=== PATIENT | male | born 1970 | race Caucasian/White ===

== ENCOUNTER 2023-09-22 10:15 | Outpatient (CLI) | payer OTHER | END 2023-09-22 10:30 | disposition home or self-care (01) | LOC: LAB.N 10:15 | PROVIDERS: ATTEND Physician Assistant Medical | DX: L02.31 Cutaneous abscess of buttock (principal) | CPT/HCPCS: 87070; 87077; 87181; 87205 ==

== ENCOUNTER 2023-10-15 22:55 | Outpatient (CLI) | payer OTHER | END 2023-10-15 22:56 | disposition critical access hospital (66) | LOC: EMS 22:55 | DX: S41.112A Laceration without foreign body of left upper arm, initial encounter (principal); S51.812A Laceration without foreign body of left forearm, initial encounter; W01.110A Fall on same level from slipping, tripping and stumbling with subsequent striking against sharp glass, initial encounter; Y93.01 Activity, walking, marching and hiking; Y92.039 Unspecified place in apartment as the place of occurrence of the external cause; F10.129 Alcohol abuse with intoxication, unspecified | CPT/HCPCS: A0425; A0427 ==

== ENCOUNTER 2023-10-15 23:08 | Emergency (ER) | payer OTHER ==
--- NOTE | 2023-10-15 23:07 | ED Physician Documentation ---
PD HPI UPPER EXT INJURY - Stated complaint Stated Complaint: L ARM INJ/FALL/ETOH - History obtained from History obtained from: Patient, EMS - Additonal information Additional information: Livia MIXON. HPI from EMS with lesser contribution from patient. Patient was walking home from a bar when he stumbled and fell, left upper extremity went through a ground-level apartment window, shattering the glass and causing multiple lacerations to the LUE. This was approximately 22:40 tonight. Denies other injury aside from the LUE lacerations. EMS arrived and describe significant amount of blood on scene as well as pulsatile bleeding from the lacerations; EMS thus placed LUE tourniquet AT 22:48 which has been in place since then. Patient is being assessed as FULL TRAUMA. PD PAST MEDICAL HISTORY - Past Medical History Past Medical History: No - Allergies Allergies/Adverse Reactions: Allergies Allergy/AdvReac Type Severity Reaction Status Date / Time codeine Allergy Rash Verified 10/15/23 23:17 PD ED PE NORMAL - Vitals Vital signs reviewed: Yes - General General: Well developed/nourished, Other (pale, diaphoretic. cervical collar in place. answers questions appropriately but occasionally perseverates (repeatedly calling out "Barbara", insists this person is in the room)) - HEENT HEENT: Atraumatic, PERRL, EOMI - Cardiac Cardiac: RRR, No murmur - Respiratory Respiratory: No respiratory distress, Clear bilaterally - Abdomen Abdomen: Soft, Non tender - Neuro Eye Opening: Spontaneous Motor: Obeys Commands Verbal: Oriented GCS Score: 15 PD ED PE EXPANDED - Extremities Extremities: Other (tourniquet in place proximal left upper arm) JOSH UE/Hands Visual: 1 - laceration (3 cm) 2 - laceration (6 cm) 3 - laceration (14 cm laceration) 4 - laceration (6 cm length. two large glass fragments (18cm and 15cm) removed by me) Results - Vitals Vitals: Oxygen O2 Source Nasal cannula Oxygen Flow Rate 6 - Labs Labs: Laboratory Tests 10/15/23 10/15/23 10/15/23 23:31 23:31 23:31 WBC 11.2 H RBC 3.38 L Hgb 10.8 L Hct 32.7 L MCV 96.7 H MCH 32.0 H MCHC 33.0 RDW 11.9 L Plt Count 282 MPV 10.0 Neut # (Auto) Not Reportable Lymph # (Auto) Not Reportable [place] # (Auto) Not Reportable Eos # (Auto) Not Reportable Baso # (Auto) Not Reportable Absolute Nucleated RBC Not Reportable Total Counted 100 Band Neuts % (Manual) 0 Abnorm Lymph % (Manual) 0 Nucleated RBC % Not Reportable Neutrophils # (Manual) 5.3 Lymphocytes # (Manual) 5.5 H Monocytes # (Manual) 0.4 Eosinophils # (Manual) 0.0 Basophils # (Manual) 0.0 Differential Comment MANUAL DIFFERENTIAL Platelet Estimate NORMAL (130-450,000) RBC Morph Micro Appear NORMAL APPEARANCE PT 12.8 H INR 1.2 APTT 20.1 L Sodium 139 Potassium 2.6 L Chloride 111 Carbon Dioxide 15 L Anion Gap 13.0 BUN 12 Creatinine 0.7 Estimated GFR (MDRD) 118 Glucose 349 H Calcium 6.0 L* Total Bilirubin 0.2 AST 26 ALT 24 Alkaline Phosphatase 77 Total Protein 4.1 L Albumin 2.1 L Globulin 2.0 L Albumin/Globulin Ratio 1.1 Lipase 32 Ethyl Alcohol 266.1 Blood Type Blood Type Recheck Antibody Screen Crossmatch IS Only 10/15/23 10/15/23 23:31 23:37 WBC RBC Hgb Hct MCV MCH MCHC RDW Plt Count MPV Neut # (Auto) Lymph # (Auto) [place] # (Auto) Eos # (Auto) Baso # (Auto) Absolute Nucleated RBC Total Counted Band Neuts % (Manual) Abnorm Lymph % (Manual) Nucleated RBC % Neutrophils # (Manual) Lymphocytes # (Manual) Monocytes # (Manual) Eosinophils # (Manual) Basophils # (Manual) Differential Comment Platelet Estimate RBC Morph Micro Appear PT INR APTT Sodium Potassium Chloride Carbon Dioxide Anion Gap BUN Creatinine Estimated GFR (MDRD) Glucose Calcium Total Bilirubin AST ALT Alkaline Phosphatase Total Protein Albumin Globulin Albumin/Globulin Ratio Lipase Ethyl Alcohol Blood Type B POSITIVE Blood Type Recheck B POSITIVE Antibody Screen NEGATIVE Crossmatch IS Only See Detail PD Medical Decision Making - ED course Complexity details: reviewed results, re-evaluated patient, considered differential, d/w patient ED course: This patient was assessed as a full code. Thus, the general surgeon on duty (Dr. Barahona) was present during the evaluation. Hypotensive readings on presentation but these improved with normal/low-normal blood pressures for remainder of ED stay. Due to reported blood loss and hypotensive readings on presentation, he is transfused PRBC prior to transfer. Note that I removed two large FB from wound #4 (see PE documentation, above): two glass shards, measuring 18cm length and 15 cm length. Tourniquet left in pl priscilla throughout ED stay. I discussed this case with [facility] [place] [facility] and they accept patient as ED/ED [place] [facility] Departure - Departure Disposition: 02 Transfer Acute Care Hosp Clinical Impression: Laceration of multiple sites of arm Qualifiers: Encounter type: initial encounter Laterality: left Qualified Code(s): S41.112A - Laceration without foreign body of left upper arm, initial encounter Condition: Good Forms: PCP List Discharge Date/Time: 10/16/23 00:20
[2023-10-15 23:39] LABS: BASOPHILS % (AUTO) 0.6 %; EOSINOPHILS % (AUTO) 1.1 %; HCT - HEMATOCRIT 32.7 % (42.0-52.0); HGB - HEMOGLOBIN 10.8 g/dL (14.0-18.0); LYMPHOCYTES % (AUTO) 59.5 %; MEAN CORPUSCULAR VOLUME 96.7 fL (80.0-94.0); MONOCYTES % (AUTO) 6.4 %; NEUTROPHILS % (AUTO) 32.1 %; PLT - PLATELET COUNT 282 10^3/uL (130-450); RED BLOOD COUNT 3.38 10^6/uL (4.70-6.10); RED CELL DISTRIBUTION WIDTH 11.9 % (12.0-15.0); WHITE BLOOD COUNT 11.2 x10^3/uL (4.8-10.8)
[2023-10-15 23:40] LABS: ABNORMAL LYMPHS % (MANUAL) 0 %; BAND NEUTROPHILS % (MANUAL) 0 %
[2023-10-15 23:46] LABS: PARTIAL THROMBOPLASTIN TIME 20.1 secs (24.9-33.3)
[2023-10-15 23:50] LABS: INR 1.2 (0.8-1.2); PT - PROTHROMBIN TIME 12.8 secs (9.9-12.6)
[2023-10-15 23:56] LABS: ETOH - ETHANOL 266.1 mg/dL
[2023-10-16] LABS: ALBUMIN 2.1 g/dL (3.2-5.5); ALBUMIN/GLOBULIN RATIO 1.1 (1.0-2.2); BILIRUBIN,TOTAL 0.2 mg/dL (0.2-1.0); CREATININE 0.7 mg/dL (0.6-1.3); POTASSIUM 2.6 mmol/L (3.5-4.5); TOTAL PROTEIN 4.1 g/dL (6.4-8.9)
[2023-10-16] MEDS ORDERED: CALCIUM GLUC 1,000MG/50ML-NACL 1,000 MG/50 ML BAG IV ONE (00:08)
[2023-10-16 00:10] LABS: DIFFERENTIAL COMMENT MANUAL DIFFERENTIAL; LYMPHOCYTES # (MANUAL) 5.5 10^3/uL (1.5-3.5); LYMPHOCYTES % (MANUAL) 49 %; MONOCYTES # (MANUAL) 0.4 10^3/uL (0.0-1.0); NEUTROPHILS # (MANUAL) 5.3 10^3/uL (1.5-6.6); PLATELET ESTIMATE, MANUAL NORMAL (130-450,000) (NORMAL); RBC MORPHOLOGY (MULTIPLE) NORMAL APPEARANCE (NORMAL)
[2023-10-16] MEDS: CALCIUM GLUC 1,000MG/50ML-NACL 1,000 MG/50 ML BAG IV ONE (00:10)
[2023-10-16 00:26] VITALS: BP 122/87; O2SAT 100
== END 2023-10-16 00:20 | disposition short-term general hospital (02) ==
LOC: EDUNIT# → ED 23:08
DX: S51.822A Laceration with foreign body of left forearm, initial encounter (principal); W01.110A Fall on same level from slipping, tripping and stumbling with subsequent striking against sharp glass, initial encounter; Y93.01 Activity, walking, marching and hiking
CPT/HCPCS: 36415; 36430; 80053; 82077; 83690; 85025; 85610; 85730; 86850; 86900; 86901; 86920; 96374; 99283; 99285; P9016

== ENCOUNTER 2023-11-20 08:00 | Outpatient (CLI) | payer OTHER | END 2023-11-20 23:59 | disposition home or self-care (01) | LOC: LAB.WCP 08:00 | PROVIDERS: ATTEND Nurse Practitioner Family | DX: L02.31 Cutaneous abscess of buttock (principal) | CPT/HCPCS: 87070; 87075 ==

== ENCOUNTER 2023-12-25 12:55 | Outpatient (CLI) | payer OTHER ==
[2023-12-25 17:37] LABS: BASOPHILS # (AUTO) 0.1 10^3/uL (0.0-0.1); EOSINOPHILS # (AUTO) 0.2 10^3/uL (0.0-0.7); EOSINOPHILS % (AUTO) 2.9 %; HCT - HEMATOCRIT 47.6 % (42.0-52.0); HGB - HEMOGLOBIN 15.2 g/dL (14.0-18.0); LYMPHOCYTES # (AUTO) 3.2 10^3/uL (1.5-3.5); MEAN CORPUSCULAR HEMOGLOBIN 29.3 pg (27.0-31.0); MEAN CORPUSCULAR HGB CONC 31.9 g/dL (32.0-36.0); MEAN CORPUSCULAR VOLUME 91.7 fL (80.0-94.0); MEAN PLATELET VOLUME 10.2 fL (7.4-11.4); MONOCYTES # (AUTO) 0.7 10^3/uL (0.0-1.0); MONOCYTES % (AUTO) 10.6 %; NEUTROPHILS # (AUTO) 2.8 10^3/uL (1.5-6.6); NEUTROPHILS % (AUTO) 40.4 %; PLT - PLATELET COUNT 390 10^3/uL (130-450); RED BLOOD COUNT 5.19 10^6/uL (4.70-6.10); RED CELL DISTRIBUTION WIDTH 13.1 % (12.0-15.0)
[2023-12-25 18:09] LABS: ALBUMIN 3.8 g/dL (3.2-5.5); ALBUMIN/GLOBULIN RATIO 1.1 (1.0-2.2); ALKALINE PHOSPHATASE 76 IU/L (42-121); ALT ALANINE AMINOTRANSFERASE 23 IU/L (10-60); AST ASPARTATE AMINOTRANSFERASE 29 IU/L (10-42); BILIRUBIN,TOTAL 0.5 mg/dL (0.2-1.0); BUN - BLOOD UREA NITROGEN 16 mg/dL (6-20); CALCIUM 10.3 mg/dL (8.5-10.3); CARBON DIOXIDE - CO2 33 mmol/L (21-32); CHLORIDE 99 mmol/L (101-111); CHOL/HDL RATIO 6.3 (<5.0); CHOLESTEROL 194 mg/dL; GFR - MDRD 78 (>89); GLUCOSE 147 mg/dL (74-104); HDL CHOLESTEROL 31 mg/dL; LDL CHOLESTEROL,CALCULATED 114 mg/dL; LDL/HDL RATIO 3.7 (<3.6); POTASSIUM 3.8 mmol/L (3.5-4.5); SODIUM 137 mmol/L (135-145); TOTAL PROTEIN 7.4 g/dL (6.4-8.9); TRIGLYCERIDES 243 mg/dL (48-352); VLDL CHOLESTEROL 49 mg/dL
[2023-12-25 18:14] LABS: MICROALBUMIN,URINE 16.7 mg/dL
[2023-12-25 18:24] LABS: CREATININE,URINE 462.9 mg/dL; MICROALBUM/CREATININE RATIO,UR 36.1 ug/mg (<30.0)
[2023-12-25 20:07] LABS: ESTIMATED AVERAGE GLUCOSE 169 mg/dL (70-100); HEMOGLOBIN A1c% 7.5 % (4.27-6.07)
== END 2023-12-25 12:56 | disposition home or self-care (01) ==
LOC: LAB.N 12:55
PROVIDERS: ATTEND Physician Assistant
DX: E11.65 Type 2 diabetes mellitus with hyperglycemia (principal); I48.0 Paroxysmal atrial fibrillation; E78.5 Hyperlipidemia, unspecified
CPT/HCPCS: 36415; 80053; 80061; 82043; 82570; 83036; 83721; 85025

== ENCOUNTER 2024-03-16 21:15 | Outpatient (CLI) | payer OTHER | END 2024-03-16 21:16 | disposition critical access hospital (66) | LOC: EMS 21:15 | DX: S09.92XA Unspecified injury of nose, initial encounter (principal); S09.93XA Unspecified injury of face, initial encounter; W18.30XA Fall on same level, unspecified, initial encounter; Y92.003 Bedroom of unspecified non-institutional (private) residence as the place of occurrence of the external cause; F10.90 Alcohol use, unspecified, uncomplicated | CPT/HCPCS: A0425; A0429 ==

== ENCOUNTER 2024-03-16 21:32 | Emergency (ER) | payer OTHER ==
--- NOTE | 2024-03-16 22:34 | ED Physician Documentation ---
History of Present Illness - Stated complaint Stated Complaint: GLF/ETOH - Chief complaint Chief Complaint: Trauma Hd/Nk - Additonal information Additional information: 54-year-old male presents with fall in the setting of alcohol use. I do see a prior note from September 2023 with an injury in the setting of alcohol use. He is here with a partner. He was drinking alcohol today and fell, hitting his nose, which he blood from. He is not sure if he lost conscious. No SI or HI. He has pain in his nose, but denies head or neck or chest or back or abdominal or flank or extremity pain otherwise. No anticoagulation. Partner feels he is not sober enough yet to make his own decisions. They do not remember last tdap. No other new concerns. ROS Constitutional: no fever, no chills Eyes: no visual disturbance, no discharge Ears, Nose, Mouth, Throat: no rhinorrhea, no sore throat Cardiovascular: no chest pain, no palpitations Respiratory: no cough, no shortness of breath Gastrointestinal: no abdominal pain, no vomiting, no diarrhea Genitourinary: no dysuria, no hematuria Musculoskeletal: no back pain, no neck stiffness Skin: no rash, no wound (other than epistaxis, resolved) Neurological: no focal weakness, no focal numbness PD PAST MEDICAL HISTORY - Past Medical History Past Medical History: Yes - Past Surgical History Past Surgical History: Yes - Allergies Allergies/Adverse Reactions: Allergies Allergy/AdvReac Type Severity Reaction Status Date / Time codeine Allergy Rash Verified 03/16/24 21:40 - Social History Does the pt smoke?: No Smoking Status: Never smoker Does the pt drink ETOH?: Yes ETOH Use: Liquor PD ED PE NORMAL - Free text exam Free text exam: General: no distress, non toxic appearing; calm, conversant, pleasant; slurs words occasionally, smells of alcohol HEENT: o scalp lacerations, step offs or deformities, Garcia's sign, hemotympanum, otorrhea, midface instability, nasal septal hematoma, Raccoon eyes, maxillary TTP, intraoral evidence of trauma, malocclusion. Evidence of dried epistaxis present, not current. Neck: no C-spine tenderness, step offs, or deformities. No anterior neck crepitus or swelling. Chest: clavicles atraumatic, chest wall non tender to palpation. Lungs clear to auscultation bilaterally. Heart RRR, no murmurs. Abdomen: non-tender to palpation, no ecchymosis. Pelvis: stable to compression without tenderness. : no blood at urethral meatus. Extremities: no visible or palpable injury/deformity. Intact ROM, strength, sensation, and 2+ distal pulses. No snuffbox tenderness to palpation or pain with axial thumb loading bilaterally. Compartments soft in all extremities. Neuro: ANOx4, shipping/receiving manager 2-12 intact, intact strength and sensation and coordination all extremities, no clonus bilateral lower extremities Back: no T or L spine tenderness to palpation, step offs, or deformities. No CVA tenderness to palpation bilaterally. Skin: no other lacerations. Results - Vitals Vitals: Vital Signs - 24 hr 03/16/24 03/16/24 03/16/24 21:37 21:41 23:12 Temperature 36.0 C L Heart Rate 90 94 89 Respiratory 18 15 Rate Blood Pressure 157/100 H 144/73 H O2 Saturation 97 98 03/16/24 03/17/24 23:57 00:05 Temperature 36.5 C Heart Rate 99 79 Respiratory 19 16 Rate Blood Pressure 119/100 H 144/68 H O2 Saturation 99 99 Oxygen O2 Source Room air - Rads (name of study) CT head Relevant Findings:: See rad report, Other (No acute findings on my independent review of imaging.) CT C spine Relevant Findings:: See rad report (No acute findings on my independent review of imaging.), Other CT max face Relevant Findings:: See rad report, Other PD Medical Decision Making - ED course ED course: This patients presentation is most suggestive of mechanical ground-level fall in the setting of alcohol use, in a patient with a overall reassuring primary survey, secondary survey notable for what is most likely a nasal fracture with resolved epistaxis. I am obtaining CT head, max face, C-spine, updating Tdap, and closely reassessing. Partner at bedside understands and agrees with plan in the setting of patient appearing intoxicated here. CT imaging with chronic findings but no acute findings. Note I confirmed again with patient by history and exam he has no acute clavicle tenderness, as well as no evidence of acute eye injuries. He fully understands imaging findings, and copies of reads were provided. He has sobered, is cogent, calm, cooperative, demonstrated capacity, with partner at bedside agreeing patient has capacity. He is requesting to discharge, understanding portance of close follow-up and return precautions. He declines further assist with alcohol use here, but states he has outpatient resources he plans on pursuing. No other new concerns. On review, patient has nasal fracture. He is aware of follow up regarding this; we discussed potential for ENT if he wants outpatient when swelling improves. Results of work up today were discussed with the patient. Patient was instructed to follow up on incidental imaging findings with their primary care doctor. Patient ambulatory and tolerating PO. Patient aware they should not drive. Partner with him. Repeat exams and vital signs reassuring. Blood pressure is elevated but suitable for outpatient follow up, with no evidence of hypertensive emergency here clinically. Patient questions answered and plan reviewed. Strong return precautions given. Patient discharged. Departure - Departure Disposition: 01 Home, Self Care Clinical Impression: Alcohol use disorder, Fall Condition: Good Comments: It was a pleasure taking care of you today. It is important to fully read and understand the below. Please ask us if you have any questions. We obtained CTs of your head, face, and neck after your fall today. We updated your tetanus. Please see your primary doctor within 3 to 5 days for reassessment and to discuss your alcohol use. If you would like further assistance with stopping alcohol use, we are always here to help. No tests or assessments are perfect, and your condition could cell changer time. If your symptoms change or worsen, it is very important you immediately seek medical care. If you have any new or worsening pain, shortness of breath, fever, vomiting, confusion, numbness, weakness, or anything else that concerns you, please immediately seek medical care. If you have been prescribed any medications: please read the drug package inserts on how to properly use the medication and any potential side effects. If you had labs (blood tests) or imaging (CT scan or x-rays) done during your visit: please follow up on the results of these with your primary care doctor, as discussed. In addition, please know the results we received today may be preliminary. Our usual practice is to follow up on tests within a few days of a patient's discharge from the Emergency Department and notify you of any changes. These may lead to changes to your treatment plan. However, the best way to obtain and interpret these test results is through your Primary Care Provider. If you need to update your contact information, please stop by the supervisor front and alert the Registration personnel before you leave the Emergency Department. Thank you for the opportunity to participate in your healthcare. We are always here and happy to see you in the future. Discharge Date/Time: 03/17/24 00:06
[2024-03-16] MEDS: TETANUS/DIPHTHERIA/PERTUSSIS 0.5 ML SYRINGE IM ONE (22:51)
--- NOTE | 2024-03-16 22:59 | CT Report ---
PROCEDURE: Head WO INDICATIONS: fall TECHNIQUE: Noncontrast 4.5 mm thick angled axial sections acquired from the foramen magnum to the vertex. For r adiation dose reduction, the following was used: automated exposure control, adjustment of mA and/or kV according to patient size. COMPARISON: None. FINDINGS: Image quality: Diagnostic CSF spaces: Basal cisterns are patent. Lateral ventricles are symmetric. Volume: Minimal volume loss Brain: No acute hematoma. No gross loss of hayward-white differentiation Craniofacial structures: No displaced fracture. Mild paranasal sinus mucosal thickening. Ruptured rig ht globe, age indeterminate. IMPRESSION: No acute intracranial hematoma. Ruptured right globe, age indeterminate. Reviewed by: Manuel Tran MD on 03/16/2024 10:58 PM PDT Approved by: Manuel Tran MD on 03/16/2024 10:58 PM PDT Station ID: [id number]
--- NOTE | 2024-03-16 23:14 | CT Report ---
PROCEDURE: Cervical Spine WO INDICATIONS: fall TECHNIQUE: Noncontrast 3 mm thick sections acquired from the skull base to the T4 level. Sagittal and coronal r eformats were then constructed. For radiation dose reduction, the following was used: automated exp osure control, adjustment of mA and/or kV according to patient size. COMPARISON: None. FINDINGS: Image quality: Diagnostic Bones: Mild to moderate degenerative changes Vertebral body heights are well-maintained. No traumatic subluxation. There is a left clavicle fracture with evidence of attempted healing and callus formation, age indete rminate. Soft tissues: No apical pneumothorax. Prominent pharyngeal and tonsillar structures (possibly infecti ous/inflammatory condition limit evaluation of the prevertebral soft tissues. IMPRESSION: Mild to moderate degenerative changes. No acute displaced fracture or dislocation. If there is high concern for further derangement, consider MRI evaluation. 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 Reviewed by: Manuel Tran MD on 03/16/2024 11:12 PM PDT Approved by: Manuel Tran MD on 03/16/2024 11:12 PM PDT Station ID: [id number]
--- NOTE | 2024-03-16 23:16 | CT Report ---
PROCEDURE: Maxillofacial WO INDICATIONS: fall TECHNIQUE: Noncontrast 1.5 mm thick axial images acquired from the mandible through the frontal sinuses, with co yandy and sagittal reformatting. For radiation dose reduction, the following was used: automated ex posure control, adjustment of mA and/or kV according to patient size. COMPARISON: None. FINDINGS: Image quality: Diagnostic Bones: Mildly displaced and comminuted nasal bone fracture. The zygomatic arches are intact. No displaced fracture of the mandible. Pterygoid plates are intact. The orbital cast appear intact. Sinuses and mastoids: No significant paranasal sinus opacity. Mild mucosal thickening is present thro ughout. Hypoplastic right mastoids. Soft tissues: Soft tissue swelling is seen adjacent to the nose. Age-indeterminate ruptured right grupo be. Brain: Separately dictated IMPRESSION: Mildly displaced and comminuted nasal bone fracture with surrounding soft tissue swelling. Age-indeterminate rupture of the right globe. Reviewed by: Manuel Tran MD on 03/16/2024 11:15 PM PDT Approved by: Manuel Tran MD on 03/16/2024 11:15 PM PDT Station ID: [id number]
[2024-03-16 23:59] VITALS: O2SAT 99
[2024-03-17 00:13] VITALS: BP 144/68
== END 2024-03-17 00:06 | disposition home or self-care (01) ==
LOC: EDUNIT# → ED 21:32
DX: S02.2XXA Fracture of nasal bones, initial encounter for closed fracture (principal); W18.30XA Fall on same level, unspecified, initial encounter
CPT/HCPCS: 90471; 99284